=== PATIENT | female | born 1975 | race American Indian/Alaskan Native ===

== ENCOUNTER 2025-01-18 00:54 | Day surgery (SDC) | payer OTHER, SELFPAY ==
[2025-01-08 11:16] VITALS: BMI 28.3
--- NOTE | 2025-01-08 11:32 | PC.NURSE ---
Report to hospital entrance 7 right of the green pavilion located off [facility] by 'emy parking lot, at time _0600_ on date _[id number]_. Planned Procedure Time: _07_.? Time changes happen often and if your time is changed the preop area will call you the afternoon before. - You and your visitor will be asked to self-screen and do not enter if you have any COVID symptoms. Please call surgeon if you need to reschedule. - A mask is optional within the hospital at this time. - No food or drink from midnight until time of surgery and no smoking, or chewing tobacco (or any form of nicotine). No chewing gum, candy or mints. Take only the following medications with a SIP of water on the morning of surgery: __Buspirone, Duloxetine, and Propanolol___ DO NOT STOP ANY OF YOUR OTHER PRESCRIPTION MEDICATIONS PRIOR TO SURGERY EXCEPT THE FOLLOWING Hold all vitamins and supplements for 3 days per anesthesiologist. Medications to discontinue per physician Date to take last dose Please no make-up, nail divehi, hairspray, perfume, deodorant, or body powder the day of surgery.? No jewelry (including any body piercings) or valuables the day of surgery, leave them at home.? Please take a shower or bath the night before, or the morning of, surgery with an antibacterial soap.? Wear comfortable, loose fitting clothing. - Jewelry must be removed prior to entering the operating room.? Rings and piercings that are not removed may be cut off. - The hospital will not accept responsibility for valuables.? - Please leave all valuables, including medications, at home the day of surgery. If you are going home after surgery, a licensed regional company truck driver must drive you home.? - NO public transportation without another adult if you receive anesthesia. - We recommend that an adult stay with you for 24 hours following discharge. - We also recommend that you do not drive, make important decision, drink alcoholic beverages, or take any drugs that were not prescribed by your health care provider for at least 24 hours after your discharge time. Follow any additional instructions given to you from your surgeon. Telephone instructions given to __Shirley Hawthorne__and asked if any additional questions and then verbalized understanding. Patient advised to call surgeon office or pre surgery nurse liaison [phone] if any additional questions.
[2025-01-18] VITALS (8 sets, daily range): BP systolic 116–153; BP diastolic 75–86; PULSE 59–83; RESP 15–20; TEMP 36.4–36.6; O2SAT 96–100
--- OUTSIDE RECORDS SUMMARY | 2025-01-18 00:58 | XMS_ITS | Clinical Summary ---
Author Organization [facility] Address [address] [place] [address] Care Team Providers Care Safety Technician Name Role Phone None, Provider MD Primary Care Provider Unavaila ble Allergies No known active allergies Medications atorvastatin (LIPITOR) 10 MG tablet Take 1 tablet (10 mg total) by mouth nightly at bedtime. Active vitamin D2, ergocalciferol, (VITAMIN D, ERGOCALCIFEROL, ) 1.25 mg capsule Take 1 capsule (1.25 mg total) by mouth every 7 days. Active citalopram (CELEXA) 20 MG tablet Take 1 tablet (20 mg total) by mouth daily. Active ferrous gluconate (FERGON) 324 (37.5 Fe) MG tablet Take 1 tablet (324 mg total) by mouth 2 (two) times daily with meals. Active folic acid (FOLVITE) 1 MG tablet Take 1 tablet (1 mg total) by mouth daily. Active ibuprofen (MOTRIN) 600 MG tablet Take 1 tablet (600 mg total) by mouth 2 (two) times daily as needed for Pain. Active HM LIDOCAINE PATCH EX Apply 1 patch topically daily. Remove 12 hours later Active metFORMIN (GLUCOPHAGE) 500 MG tablet Take 1 tablet (500 mg total) by mouth 2 (two) times daily with meals. Active Senna (SENOKOT) 8.6 MG tablet Take 1 tablet (8.6 mg total) by mouth 2 (two) times daily as needed for Constipation. Active lisinopril (PRINIVIL) 5 MG tablet Take 1 tablet (5 mg total) by mouth daily. Active propranolol (INDERAL) 20 MG tablet Take 1 tablet (20 mg total) by mouth 2 (two) times daily. Active semaglutide (OZEMPIC) 2 MG/1.5ML injection (PEN)Indication s:Diabetes Mellitus Inject 1 mg into the skin every 7 days. Indications: Diabetes Active Active Problems Problem Noted Date Diagnosed Date Iron deficiency anemia due to chronic blood loss 12/01/2023 Blood in stool 10/11/2023 Encounters Date Type Department Care Team Description 11/23/2024 7:36 AM CDT - 11/23/2024 11:59 PM CDT Hospital Encounter [facility] Mammography [address] [place] [address] Shira Barlow MD Discharge Disposition: Home or Self Care (Routine Discharge) from Last 3 Months Family History Medical History Relation Comments Breast Cancer Paternal Aunt unsure of exact age Relation Status Comments Paternal Aunt Other Social History Tobacco Use Types Packs/Day Years Used Date Smoking Tobacco: Former Cigarettes Tobacco Cessation:Counseling Given: Not Answered Comments No Sex and Gender Information Value Date Recorded Sex Assigned at Not on file Legal Sex Female 10:27 AM CDT Gender Identity Not on file Sexual Orientation Not on file Last Filed Vital Signs Vital Sign Reading Time Taken Comments Blood Pressure 115/71 08/21/2024 10:15 AM PAPER GUILLOTINE OPERATOR Pulse 77 08/21/2024 10:05 AM PAPER GUILLOTINE OPERATOR Temperature 36.7 C (98.1 F) 08/21/2024 8:54 AM PAPER GUILLOTINE OPERATOR Respiratory Rate 16 08/21/2024 10:05 AM PAPER GUILLOTINE OPERATOR Oxygen Saturation 100% 08/21/2024 10:15 AM PAPER GUILLOTINE OPERATOR Inhaled Oxygen Concentration - - Weight 88.5 kg (195 lb) 08/02/2023 1:59 PM PAPER GUILLOTINE OPERATOR Height - - Body Mass Index - - Plan of Treatment Health Maintenance Due Date Last Done Comments Cervical Cancer Screening Pa p Smear (Age 30 to 64) Every 3 Years 1977 Annual Physical 1980 Hepatitis C 1995 DTaP, Tdap and Td Vaccines ( 1 - Tdap) 1996 Hepatitis B Vaccines (1 of 3 - 19+ 3-dose series) 1996 Cervical Cancer Screening Pa p with HPV Testing (Age 30 to 64) Every 5 Years 2007 Cervical Cancer Screening with HPV 2007 COVID-19 Vaccine ( - 2023-2 5 season) 2024 PHQ-2 (Physician [place]) 09/12/2024 Mammogram Screening 11/23/2026 11/23/2024 Colorectal Cancer Screening Colonoscopy (10 Years) 08/21/2034 08/21/2024 Meningococcal B Vaccine Aged Out No l onger eligible based on patient's age to complete this topic Meningococcal Vaccine Aged Out No sahil akua eligible based on patient's age to complete this topic Pneumococcal Vaccine: Pediat rics (0 to 5 Years) and At-Risk Patients (6 to 49 Years) Aged Out No longer eligi ble based on patient's age to complete this topic RSV Immunizations Under 20 Months Aged Out No longer eligible based on patient's age to complete this topic Procedures Procedure Name Priority Date/Time Associated Diagnosis Comments MG SCREENING W ED AMRITA DIGI Routine 11/23/2024 7:55 AM CDT Encounter for screening mammogram for malignant neoplasm of breast from Last 3 Months Results * MG SCREENING W ED AMRITA DIGI (11/23/2024 7:55 AM CDT) Anatomical Region Laterality Modality Breast Bilateral Mammography 11/23/2024 10:3 4 AM CDT Impressions 11/23/2024 10:59 AM CDT ===== IMPRESSION: ===== 1. No mammographic evidence of malignancy. Assessment: ACR BI-RADS 1 - NEGATIVE Recommendation: 1:Routine Screening Bilateral Comments: Ordered By: SHIRA BARLOW V Interpreted By: Ena Zavala, 11/23/2024 10:34 AM Narrative 11/23/2024 10:59 AM CDT [address] [place] [address] EXAMINATION: Digital bilateral screening mammogram with 3-D tomosynthesis EXAM DATE/TIME: 11/23/2024 7:40 AM REASON FOR EXAM: Routine screening Paternal aunt with breast carcinoma at undisclosed age COMPARISON: Baseline exam Technique: Digital screening mammography of both breasts was performed in addition to 3-D Tomosynthesis technique. This study was read with the assistance of a computer-aided detection system. Tissue density: There are scattered areas of fibroglandular density. Findings: There is no focal asymmetry, dominant mass lesion, area of skin thickening, or cluster of suspicious appearing calcifications in either breast to suggest malignancy. Shira Paula MD MAMMO Final Result from Last 3 Months Insurance CARE Care Teams Safety Technician Relationship Specialty Start Date End Date None, Provider, PCP - General UNKNOWN PHYSICIAN SPECIALTY 08/02/23
--- NOTE | 2025-01-18 05:57 | ECG_ITS ---
Test Date: 2025-01-18 07:01:08 Measurements Intervals [place] Rate: 68 P: 29 CT: 157 QRS: -2 QRSD: 92 T: 15 QT: 401 QTc: 428 Interpretive Statements SINUS RHYTHM LOW QRS VOLTAGE IN PRECORDIAL LEADS [QRS DEFLECTION < 1.0 mV IN CHEST LEADS] No previous ECG available for comparison Electronically Signed On 01-18-2025 12:17:10 CDT by Duran Vanegas M.D.
[2025-01-18 06:42] LABS: Hematocrit 32.2 % (37.0-47.0); Hemoglobin 8.7 g/dL (12.0-15.0)
--- NOTE | 2025-01-18 06:55 | PM.IMHP ---
H&P: HPI History of Present Illness Date/Time: 01/18/25 06:55 Chief Complaint: Symptomatic bleeding hemorrhoids Narrative: Melina is a 49 y/o female who resides at [facility] who presents to the office at the request of [facility] for an evaluation of hemorrhoids. Patient reports she has had constipation and rectal bleeding since 2017. She has had several colonoscopies, her last one was 7 months ago and all was benign, but hemorrhoids present. Patient is severely anemic and has required 2 blood transfusions in the last 3 years. Review of Systems Review of Systems: The remainder of the review of systems to include constitutional, HEENT, cardiovascular, respiratory, GI, , integumentary, musculoskeletal, endocrine, immunologic, hematologic, psychiatric, and neurologic are all negative except for which is mentioned above in the HPI. [facility] Past Medical History Medical History Headache Diabetes Anxiety Anemia Family History Family History Father Alcoholism Diabetes mellitus Hypertension Grandparent Alcoholism Cancer Diabetes mellitus Sibling Diabetes mellitus Hypertension Social History Social History Smoking status: Former smoker Substance use: former Substance use type: amphetamines Current Housing: Decline to Answer Concerned About Future Housing: Decline to Answer Difficulty Paying Gas/Electric Bills: Decline to Answer Difficulty Paying for Meds: Decline to Answer Currently Unemployed: Decline to Answer Education: Decline to Answer Difficulty w/ Childcare or Family Care: Decline to Answer Living arrangements: incarcerated Meds Home Medications and Allergies Home Medications ?Medication ?Instructions ?Recorded ?Confirmed ?Type lisinopril 5 mg tablet 5 mg PO DAILY 11/28/24 01/08/25 History metformin 500 mg tablet 500 mg PO BID 11/28/24 01/08/25 History atorvastatin 10 mg tablet (Lipitor) 10 mg PO HS 01/08/25 01/08/25 History buspirone 10 mg tablet 10 mg PO BID 01/08/25 01/08/25 History cholecalciferol (vitamin D3) 25 1,000 unit PO DAILY 01/08/25 01/08/25 History mcg (1,000 unit) chewable tablet (VitaJoy Daily D) duloxetine 60 mg capsule,delayed 60 mg PO DAILY 01/08/25 01/08/25 History release (Cymbalta) ferrous gluconate 324 mg (37.5 mg 324 mg PO BID 01/08/25 01/08/25 History iron) tablet folic acid 1 mg tablet 1 mg PO DAILY 01/08/25 01/08/25 History propranolol 20 mg tablet 20 mg PO Q12H 01/08/25 01/08/25 History semaglutide 1 mg/dose (4 mg/3 mL) 1 mg subcut WEEKLY 01/08/25 01/08/25 History subcutaneous pen injector (Ozempic) sennosides 8.6 mg tablet 17.2 mg PO DAILY PRN constipation 01/08/25 01/08/25 History (Black-Draught Lax-Senna) Allergies Allergy/AdvReac Type Severity Reaction Status Date / Time No Known Allergies Allergy Verified 01/08/25 11:07 Exam Const: General: comfortable and no acute distress HENMT: Ears: TM's normal bilaterally Face/Nose/Sinus: Normal nares present Mouth: Yes moist mucous membranes Eyes: General: appearance normal, both eyes and all related structures Sclera: sclerae normal Pupils: Equal, round and reactive pupils present EOM: EOMs intact bilaterally Neck: Neck: supple and no JVD Resp: Effort & Inspection: normal respiratory effort Cardio: Rate: regular rate Rhythm: regular rhythm GI: GI Palp: Yes Soft to palpation, No Firmness to palpation present (GI), No Tenderness to palpation present (GI), No Guarding due to palpation present (GI) and No Hernia present Skin: General skin exam: normal color and no rashes or lesions noted Neuro: General: gait normal Speech: normal speech Motor exam (neuro): 5/5 motor strength present throughout Sensory Exam: normal sensation Extrem: General: normal to inspection Psych: Mental Status: mental status grossly normal Affect: normal affect H&P: Results Labs Labs: Short CBC 01/18/25 Range/Units 06:20 Hgb 8.7 L (12.0-15.0) g/dL Hct 32.2 L (37.0-47.0) % Assessment and Plan Assessment and plan (1) Bleeding internal hemorrhoids: Code(s): K64.8 - Other hemorrhoids Status: Acute Assessment and Plan: I have reviewed office notes from [facility] prior to patient visit today. Discussed with patient options of hemorrhoid banding vs THD procedure vs excisional hemorrhoidectomy. I explained to her the amounts of pain associated with each procedure and recovery procedures. She would like to proceed with excisional hemorrhoidectomy. Will have patient do hemorrhoid surgery prep and coordinate date for surgery with facility.
[2025-01-18] MEDS: LACTATED RINGERS 1,000 ML 30 ML IV CONT (07:00)
[2025-01-18 07:01] LABS: Prothrombin Time 13.3 Seconds (11.1-14.7)
[2025-01-18 07:02] LABS: Partial Thromboplastin Time 24.2 Seconds (22.3-36.8)
--- NOTE | 2025-01-18 07:04 | P.PNAN_ITS ---
Anes - Initial Pre Proc Eval Procedure: Operation Date: 01/18/25 07:30 Proposed Procedures p Excisional Hemorrhoidectomy - Dorian Brown MD Date/Time: 01/18/25 07:04 Surgeon: Dorian Brown MD Pre Op Diagnosis: Bleeding Internal Hemorrhoid Patient Data Age: 49 Gender: F Height: 1.75 m Weight: 87.2 kg Allergies Allergy/AdvReac Type Severity Reaction Status Date / Time No Known Allergies Allergy Verified 01/08/25 11:07 Home Medications ?Medication ?Instructions ?Recorded ?Confirmed ?Type lisinopril 5 mg tablet 5 mg PO DAILY 11/28/24 01/08/25 History metformin 500 mg tablet 500 mg PO BID 11/28/24 01/08/25 History atorvastatin 10 mg tablet (Lipitor) 10 mg PO HS 01/08/25 01/08/25 History buspirone 10 mg tablet 10 mg PO BID 01/08/25 01/08/25 History cholecalciferol (vitamin D3) 25 1,000 unit PO DAILY 01/08/25 01/08/25 History mcg (1,000 unit) chewable tablet (VitaJoy Daily D) duloxetine 60 mg capsule,delayed 60 mg PO DAILY 01/08/25 01/08/25 History release (Cymbalta) ferrous gluconate 324 mg (37.5 mg 324 mg PO BID 01/08/25 01/08/25 History iron) tablet folic acid 1 mg tablet 1 mg PO DAILY 01/08/25 01/08/25 History propranolol 20 mg tablet 20 mg PO Q12H 01/08/25 01/08/25 History semaglutide 1 mg/dose (4 mg/3 mL) 1 mg subcut WEEKLY 01/08/25 01/08/25 History subcutaneous pen injector (Ozempic) sennosides 8.6 mg tablet 17.2 mg PO DAILY PRN constipation 01/08/25 01/08/25 History (Black-Draught Lax-Senna) Laboratory Tests 01/18/25 06:20 Hgb 8.7 L g/dL (12.0-15.0) Hct 32.2 L % (37.0-47.0) PT 13.3 Seconds (11.1-14.7) INR 1.0 APTT 24.2 Seconds (22.3-36.8) Sodium Pending Potassium Pending Chloride Pending Carbon Dioxide Pending Anion Gap Pending BUN Pending Creatinine Pending Estim Creat Clear Calc Pending Estimated GFR Pending Glucose Pending Calcium Pending Patient hx anesthesia problems: none Family hx anesthesia problems: none Results Review: All pre-operative results and documents have been reviewed as part of the pre- operative evaluation. PMFSH Past Medical History Medical History Headache Diabetes Anxiety Anemia Family History Family History Father Alcoholism Diabetes mellitus Hypertension Grandparent Alcoholism Cancer Diabetes mellitus Sibling Diabetes mellitus Hypertension Social History Social History Smoking status: Former smoker Substance use: former Substance use type: amphetamines Current Housing: Decline to Answer Concerned About Future Housing: Decline to Answer Difficulty Paying Gas/Electric Bills: Decline to Answer Difficulty Paying for Meds: Decline to Answer Currently Unemployed: Decline to Answer Education: Decline to Answer Difficulty w/ Childcare or Family Care: Decline to Answer Living arrangements: incarcerated Anes - Eval Final PreProcedure Day of Procedure 01/18/25 07:04 Patient weight: overweight Heart: regular rate and rhythm Lungs: decreased breath sounds Airway: Mallampati scale class II Neurological: alert and oriented Last oral intake: >/= 8 hours ASA classification: III Emergent: no Anesthetic plan: proceed Anesthesia type and monitoring: general LMA and standard monitoring Results Review: All pre-operative results and documents have been reviewed as part of the pre- operative evaluation. Informed Consent: The patient's anesthetic plan and its attendant risks and benefits were discussed with the patient/family/POA. Questions were solicited and answers provided to the satisfaction of the patient/family/POA.
[2025-01-18 07:09] LABS: Anion Gap 8 mmol/L (4-12); Blood Urea Nitrogen 15 mg/dL (7-17); Calcium 8.5 mg/dL (8.4-10.2); Carbon Dioxide 26 mmol/L (22-30); Chloride 106 mmol/L (98-107); Estimated CRCL calculation 95 ml/min; Estimated Glomerular Filt Rate > 60; Glucose 95 mg/dL (65-110); Potassium 3.9 mmol/L (3.4-5.0); Sodium 140 mmol/L (137-145)
--- NOTE | 2025-01-18 07:12 | WPDHPUPDATE1 ---
History and Physical Update Update Date/Time: 01/18/25 07:12 History and Physical has been reviewed, including an updated exam of the patient. There are NO changes in the patient's condition. Risks, benefits, and alternatives have been discussed and questions answered. Patient agrees to proceed with procedure.
[2025-01-18] MEDS: KETOROLAC 15 MG/ML VIAL (*BKC) IV PUSH ×2 (07:15→08:18)
[2025-01-18] MEDS: ACETAMINOPHEN 500 MG TABLET 1000 MG PO (07:15)
[2025-01-18] MEDS: ceFAZolin 2 GM/D5W 50 ML 2 GM/50 ML BAG IVPB (07:26)
[2025-01-18] MEDS: LIDO 1%/EPINEPHRINE 1:100,000 50 ML VIAL 30 ML INFILTRATE (07:42)
[2025-01-18] MEDS: BUPivacaine HCL 0.5% PF 30 ML VIAL INFILTRATE (07:43)
--- NOTE | 2025-01-18 08:09 | SUR.PREOP ---
BMP DONE PREOP SERUM GLUCOSE ON LABS
[2025-01-18 08:11] LABS: BEDSIDEPREGUCG Negative (Negative)
--- NOTE | 2025-01-18 08:51 | P.OP_ITS ---
Procedure Note - Detailed Date of Procedure 01/18/25 Pre-op Diagnosis Bleeding Internal Hemorrhoid Post-op Diagnosis Same Procedure Performed Excisional hemorrhoidectomy x 4 Surgeon Dorian Brown MD Pulp And Paper Tester BETTY Mcarthur Anesthesia General Indications Patient is a 49-year-old female who has been having chronic bleeding from her hemorrhoids for quite some time. She is mildly anemic due to the blood loss. She is currently incarcerated and was referred by the facility physician for evaluation. She presents now for excisional hemorrhoidectomy to treat her bleeding hemorrhoids. Findings The patient had large grade 3 non ulcerated and nonthrombosed posterior lateral hemorrhoids located at the 2, 4, 7, and 9 o'clock positions. No other masses in the anal canal or seen in the distal rectum. Description of Procedure After informed consent was obtained patient brought to the operating room she was placed in this lithotomy position and then she was placed under general LMA anesthesia. The perianal perineal region was then prepped and draped usual sterile fashion. Time-out was then performed correctly identifying the patient as well as procedure to be performed. She was given perioperative IV antibiotics. I then started by gently dilating the anal sphincters with a and lubricated anal speculum. A circumferential evaluation and canal and distal rectum revealed no distal rectal masses or polyps. No masses or polyps were seen in the anal canal. For grade 3 internal hemorrhoids were noted in the bilateral posterior lateral positions. Were located at the 2, 4, 7, and 9 o'clock positions with the patient in lithotomy. I then proceeded to excise out each of these hemorrhoids in a similar fashion. A 2-0 chromic suture was placed at the apex of the hemorrhoid above the dentate line and then local anesthetic mixture consisting of 1% lidocaine mixed with 0.5% Marcaine with epinephrine was injected underneath each hemorrhoid. I then used a scalpel to incise the tissue on either side of the hemorrhoid column extending get all the way out onto the perianal skin. Electrocautery was then used to completely excise off the ellipse of perianal skin and hemorrhoid tissue. Each hemorrhoid was then sent to pathology labeled with was respective position. Each of the incisions were then closed utilizing the 2-0 chromic suture at the apex which was then run in a locking fashion out to the anal verge. I then transition to using a 3-0 Vicryl suture placed in a running and locking fashion to approximate the skin edges on the perianal portion of the incision. The anal opening with still widely patent admitting 2 finger breaths at the end of the excision. Hemostasis was good. I then irrigated out the anal canal sterile saline solution. I then injected the remaining local anesthetic mixture around the anal opening for perianal block. I then administered bilateral pudendal nerve block with the same local anesthetic mixture. Anal canal packing consisting of Gelfoam soaked with lidocaine jelly was placed into the anal canal. The area was then cleaned and then 4x4 gauze, ABD pad, and disposable underwear was used for final dressing. The patient tolerated the procedure well no complications. All sponges, needles, and instrument counts were correct at the end procedure. EBL was _50__cc. The patient was awakened and taken to recovery in stable and satisfactory condition. Implants None Estimated Blood Loss 50 Drains No Packing Yes (Gelfoam packing in the anal canal) Pathology Yes (Hemorrhoids x4 to pathology) Complications No immediate complications Condition Stable Disposition PACU [facility] Billing Surgery - Charge Forward: Surgery Billing
[2025-01-18 09:00] LABS: Glucose Point of Care 112 mg/dl (65-105)
[2025-01-18] MEDS: oxyCODONE HCL (*CRX) 5 MG TAB IR PO (10:09)
== END 2025-01-18 10:34 | disposition home or self-care (01) ==
PROVIDERS: Anesthesiology; PCP Physician Assistant; Visit Provider Surgery
PROC: (CPT 46255; principal; 2025-01-18 07:30)
DX: K64.2 Third degree hemorrhoids (principal); E11.9 Type 2 diabetes mellitus without complications; F41.9 Anxiety disorder, unspecified; D64.9 Anemia, unspecified; Z79.84 Long term (current) use of oral hypoglycemic drugs; Z79.85 Long-term (current) use of injectable non-insulin antidiabetic drugs; Z87.891 Personal history of nicotine dependence; Z80.9 Family history of malignant neoplasm, unspecified
CPT/HCPCS: 46255; 36415; 80048; 82948; 85014; 85018; 85610; 85730; 88304; 93005; A9270; J0690; J1885; J2003; J2004; J2250; J2405; J2704; J3010; J7120